=== PATIENT | female | born 1995 | race Caucasian/White ===

== ENCOUNTER 2019-04-15 05:47 | Emergency (ER) | payer SELFPAY ==
[~2019-04-15] VITALS: Ht 172.7 cm; Wt 123.3 kg
[2019-04-15] MEDS ORDERED: MULTIPLE VITAM1 EACH PO (05:53)
[2019-04-15 06:48] VITALS: BP 132/83
== END 2019-04-15 06:48 | disposition home or self-care (01) ==
LOC: ED 05:47
DX: F43.0 Acute stress reaction (principal); F41.9 Anxiety disorder, unspecified; V93.83XA Other injury due to other accident on board other powered watercraft, initial encounter; Y93.19 Activity, other involving water and watercraft